=== PATIENT | male | born 1975 | race African-American/Black ===

== ENCOUNTER 2021-12-14 18:20 | Observation (INO) | payer SELFPAY ==
[2021-12-14 21:20] LABS: Absolute Lymphocytes (CBC) 1.8 K/uL (0.7-4.9); Hematocrit 44.4 % (39.6-49.0); Lymphocytes % 23.8 % (15.3-44.8); MCV 96.2 fL (80-100); MPV 7.5 fL (7.6-11.3); RBC Red Blood Cell Count 4.61 M/uL (4.33-5.43)
--- NOTE | 2021-12-14 21:58 | RAD REPORT ---
EXAM DESCRIPTION: RAD - Chest Single View - 12/14/2021 9:30 pm CLINICAL HISTORY: left sided paresthesia Chest pain. COMPARISON: No comparisons FINDINGS: Portable technique limits examination quality. The lungs are grossly clear. The heart is normal in size. No displaced fractures. IMPRESSION: No acute intrathoracic process suspected.
--- NOTE | 2021-12-14 22:04 | RAD REPORT ---
EXAM DESCRIPTION: CT - [id number] - 12/14/2021 9:53 pm CLINICAL HISTORY: Trauma, head and neck injury. intermittent slurred speech, radiculopathy symptoms COMPARISON: No comparisons TECHNIQUE: Axial 5 mm thick images of the head were obtained. Axial 2 mm thick images of the cervical spine were obtained with sagittal and coronal reconstruction images generated and reviewed. All CT scans are performed using dose optimization technique as appropriate and may include automated exposure control or mA/KV adjustment according to patient size. FINDINGS: CT HEAD WITHOUT CONTRAST: No acute hemorrhage, hydrocephalus or extra-axial collection is identified.No areas of brain edema or midline shift. The paranasal sinuses and mastoids are clear.The calvarium is intact. CT CERVICAL SPINE WITHOUT CONTRAST: No fracture or subluxation.Mild cervical degenerative changes are present.No prevertebral soft tissue s swelling is identified. IMPRESSION: No acute intracranial or cervical spine findings.
[2021-12-14] MEDS ORDERED: ATORVASTATIN 20 MG TAB ONE (22:51)
[2021-12-14] MEDS ORDERED: FOLIC ACID 1 MG TABLET ONE (22:51)
[2021-12-14] MEDS ORDERED: ASPIRIN 81 MG CHEWABLE TABLET ONE (22:51)
--- NOTE | 2021-12-14 23:40 | P.HP ---
Certification for Inpatient Patient admitted to: Observation With expected LOS: <2 Midnights Patient will require the following post-hospital care: None Practitioner: I am a practitioner with admitting privileges, knowledge of patient current condition, hospital course, and medical plan of care. Services: Services provided to patient in accordance with Admission requirements found in Title 42 Section 412.3 of the Code of Federal Regulations Patient History Date of Service: 12/14/21 Reason for admission: Left sided paresthesia History of Present Illness: 46-year-old male with no known past medical history presents the emergency department for left-sided numbness. He reports his symptoms began approximately 1 week ago he describes decreased sensation to the left upper, lower extremity as well as left side of his face. He reports that his significant other reported that his speech sounded more slurred than normal and he feels as if he may have had some difficulty swallowing earlier today. He was evaluated in the emergency department his labs were unremarkable CT head brain without contrast was negative for any acute findings ED provider wishes to admit under observation to rule out CVA. - Past Medical/Surgical History -: None -: toe surgery Psychosocial/ Personal History: Unemployed, lives at home with his - Family History Father -: Stroke - Social History Smoking Status: Current some day smoker Counseled patient to stop smoking for: less than 10 minutes Smoking therapy provided: No Alcohol use: No CD- Drugs: No Caffeine use: Yes Place of Residence: Home Review of Systems 10-point ROS is otherwise unremarkable Neurological: Numbness, As per HPI Physical Examination - Physical Exam General: Alert, In no apparent distress, Oriented x3 HEENT: Atraumatic, PERRLA, Mucous membr. moist/pink, EOMI, Sclerae nonicteric Neck: Supple, 2+ carotid pulse no bruit, No LAD, Without JVD or thyroid abnormality Respiratory: Clear to auscultation bilaterally, Normal air movement Cardiovascular: Regular rate/rhythm, Normal S1 S2 Gastrointestinal: Normal bowel sounds, No tenderness Musculoskeletal: No tenderness Integumentary: No rashes Neurological: Normal gait, Normal speech, Normal strength at 5/5 x4 extr, Normal tone, Cranial nerves 3-12 intact, Normal affect, Abnormal sensation (Decreased sensation left upper and lower extremity) - Studies Laboratory Data (last 24 hrs) 12/14/21 21:07: WBC 7.7, Hgb 15.3, Hct 44.4, Plt Count 162 12/14/21 21:07: Sodium 140, Potassium 4.0, BUN 11, Creatinine 0.99, Glucose 105 Assessment and Plan - Plan Assessment: Left-sided paresthesiasrule out CVA Tobacco abuse Recreational drug abuse Plan: Left-sided paresthesiasrule out CVA: MRI ordered, echocardiogram and carotid Doppler ordered as well. Continue with aspirin, statin and folic acid. Neurology consult in place. Tobacco abuse: Counseled on need for cessation. Recreational drug abuse: Reports PCP use a few days ago counseled on need for cessation. DVT PPX: Lovenox Code status:full Discharge Plan: Home Plan to discharge in: 24 Hours - Advance Directives Does patient have a Living Will: No Does patient have a Durable POA for Healthcare: No - Code Status/Comfort Care Code Status Assessed: Yes (Full code) Critical Care: No Time Spent Managing Pts Care (In Minutes): 70
[2021-12-15 00:18] LABS: SARS-CoV-2 Antigen Rapid Res Negative (Negative)
[2021-12-15] MEDS ORDERED: ONDANSETRON 4 MG/2 ML VIAL IV PRN (01:54)
[2021-12-15] MEDS ORDERED: ACETAMINOPHEN 500 MG TAB PO PRN (01:54)
[2021-12-15 01:59] VITALS: BMI 30.8
[2021-12-15 02:57] LABS: Absolute Lymphocytes (CBC) 2.2 K/uL (0.7-4.9); Hematocrit 44.1 % (39.6-49.0); Lymphocytes % 32.1 % (15.3-44.8); MCV 96.2 fL (80-100); MPV 7.7 fL (7.6-11.3); RBC Red Blood Cell Count 4.59 M/uL (4.33-5.43)
[2021-12-15 03:19] LABS: Albumin 3.6 g/dL (3.4-5.0); Bilirubin Total 0.7 mg/dL (0.2-1.0); Magnesium 1.9 mg/dL (1.8-2.4); Potassium 3.6 mmol/L (3.5-5.1); Protein, Total 7.2 g/dL (6.4-8.2); Thyroid Stimulating Hormone 1.33 uIU/mL (0.360-3.740)
--- NOTE | 2021-12-15 08:43 | RAD REPORT ---
EXAM DESCRIPTION: US - CP - 12/15/2021 3:45 am CLINICAL HISTORY: suspected cva COMPARISON: Head C Spine Mpr Wo Con dated 12/14/2021 TECHNIQUE: Real-time sonographic evaluation of bilateral carotid and vertebral systems was performed . Rob scale and Doppler interrogation were performed with waveform tracing bilaterally. FINDINGS: Normal high resistance waveforms are noted in both external carotid arteries. The common c arotid arteries and internal carotid arteries show normal low resistance waveforms. Noncalcified plaquing changes are seen in the bilateral carotid bulbs and in the distal right common carotid artery. Visually there is no significant luminal narrowing. No dissection changes are present . Peak systolic and end diastolic velocity values and the ICA/CCA ratios are in the non-hemodynamical ly significant range. Antegrade flow seen in both vertebral arteries. Velocity values and ratios were recorded and are retained in the patient's imaging records. IMPRESSION: Bilateral noncalcified plaquing changes are present without visual evidence for signific ant luminal narrowing peer Velocity values and ratios also indicate no hemodynamically significant stenosis.
--- NOTE | 2021-12-15 08:49 | EKG ---
Test Date: 2021-12-14 Test Time: 21:01:15 Mathematics Professor: DARIEL MEASUREMENT RESULTS: Intervals: Rate: 45 SC: 168 QRSD: 90 QT: 442 QTc: 382 [place]: P: 17 SC: 168 QRS: -11 T: 42 INTERPRETIVE STATEMENTS: Marked sinus bradycardia Moderate voltage criteria for LVH, may be normal variant Nonspecific T wave abnormality Abnormal ECG No previous ECG available for comparison Electronically Signed On 12-15-21 08:46:47 CDT by Malcolm Dumont
[2021-12-15] MEDS ORDERED: FOLIC ACID 1 MG TABLET PO SCH (09:00)
[2021-12-15] MEDS ORDERED: ASPIRIN EC 81 MG TAB PO SCH (09:00)
[2021-12-15] MEDS ORDERED: ATORVASTATIN 40 MG TAB PO ONE (09:00)
[2021-12-15] MEDS ORDERED: ENOXAPARIN 40 MG/0.4 ML SQ SCH (09:00)
[2021-12-15] MEDS ORDERED: ASPIRIN 81 MG CHEWABLE TABLET ONE (09:02)
[2021-12-15] MEDS ORDERED: FOLIC ACID 1 MG TABLET ONE (09:02)
[2021-12-15] MEDS ORDERED: ENOXAPARIN 40 MG/0.4 ML SQ ONE (09:03)
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
--- NOTE | 2021-12-15 11:42 | RAD REPORT ---
EXAM DESCRIPTION: MRI - Brain Wo Cont - 12/15/2021 11:12 am CLINICAL HISTORY: R/O CVA, left sided weakness COMPARISON: Head C Spine Mpr Wo Con dated 12/14/2021 TECHNIQUE: Sagittal T1-weighted images were obtained along with axial PD, heavily T2-weighted and T2 -FLAIR images. Axial DWI and ADC mapping sequences were also obtained along with coronal heavily T2-w eighted images. FINDINGS: No intracranial hemorrhage, mass or acute infarction. There is no edema or shift of midlin e structures. No extra-axial fluid collections. Rob-matter/white matter junction is preserved. Signa l voids are seen as a normal finding in the major intracranial vessels. No volume loss or chronic ischemic change. Ventricles are normal. No globe or orbital content abnorma lity. No sella or supra sella abnormality seen. There is no tonsillar ectopia. Mastoid air cells and paranasal sinuses are clear. IMPRESSION: Negative non-contrast MRI of the Brain for acute or significant finding.
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
--- NOTE | 2021-12-15 14:28 | ECHO ---
HEIGHT: 5 ft 7 in WEIGHT: 197 lb 0 oz DATE OF STUDY: 12/15/[address]: Juan Ramon Hester NP 2-DIMENSIONAL: YES M.MODE: YES DOPPLER: YES COLOR FLOW: YES TDS: NO PORTABLE: YES DEFINITY: NO BUBBLE STUDY: NO DIAGNOSIS: SUSPECTED CVA CARDIAC HISTORY: CATHERIZATION: NO SURGERY: NO PROSTHETIC VALVE: NO PACEMAKER: NO MEASUREMENTS (cm) DIASTOLIC (NORMALS) SYSTOLIC (NORMALS) IVSd 1.1 (0.6-1.2) LA Diam 2.9 (1.9-4.0) LVEF 65% LVIDd 4.5 (3.5-5.7) LVIDs 2.9 (2.0-3.5) %FS 35% LVPWd 1.2 (0.6-1.2) Ao Diam 3.3 (2.0-3.7) 2 DIMENSIONAL ASSESSMENT: RIGHT ATRIUM: NORMAL LEFT ATRIUM: NORMAL RIGHT VENTRICLE: NORMAL LEFT VENTRICLE: NORMAL TRICUSPID VALVE: MITRAL VALVE: PULMONIC VALVE: AORTIC VALVE: NORMAL PERICARDIAL EFFUSION: NONE AORTIC ROOT: NORMAL LEFT VENTRICULAR WALL MOTION: NORMAL DOPPLER/COLOR FLOW: SEE BELOW COMMENTS: NORMAL LEFT VENTRICULAR EJECTION FRACTION 60-65%. NORMAL WALL MOTION. MILD TRICUSPID, PULMONARY AND MITRAL REGURGITATION. TECHNOLOGIST: Juany VAZQUEZ
[2021-12-15 15:07] VITALS: O2SAT 100
[2021-12-15 15:09] VITALS: TEMP 98.3
[2021-12-15 15:12] VITALS: BP 114/89
[2021-12-15] MEDS ORDERED: ATORVASTATIN 40 MG TAB PO SCH (21:00)
--- NOTE | 2021-12-16 09:54 | ER ---
Nurse's Notes [facility] Diann Name: Shawn David IV Age: 46 yrs Sex: Male : 1975 Arrival Date: 12/14/2021 Time: 18:20 Bed 28 Private MD: Diagnosis: Paresthesia of skin;Aphasia Presentation: 12/14 18:29 Chief complaint: Patient states: pt presented to ED reporting left neck pain that galvez radiates to left arm with numbness x1 week. pt stated that spouse notice pt having slurred speech x1 week off and on. Coronavirus screen: Vaccine status: Patient reports being unvaccinated. Ebola Screen: Patient denies travel to an Ebola-affected area in the 21 days before illness onset. Initial Sepsis Screen: Does the patient meet any 2 criteria? No. Patient's initial sepsis screen is negative. Does the patient have a suspected source of infection? No. Patient's initial sepsis screen is negative. Risk Assessment: Do you want to hurt yourself or someone else? Patient reports no desire to harm self or others. Onset of symptoms was December 07, 2021. 18:29 Method Of Arrival: Ambulatory galvez 18:29 Acuity: LUIS FERNANDO 3 galvez Historical: - Allergies: 18:32 Iodine; galvez - Home Meds: 18:32 None [Active]; galvez - PMHx: 18:32 None; galvez - PSHx: 18:32 None; galvez - Immunization history:: Adult Immunizations up to date. - Social history:: Smoking status: Patient reports the use of cigarette tobacco products, smokes one-half pack cigarettes per day, Patient uses street drugs, phencyclidine. Screenin:23 Abuse screen: Denies threats or abuse. Nutritional screening: No deficits noted. bb Tuberculosis screening: No symptoms or risk factors identified. Fall Risk None identified. Assessment: 18:34 Neuro: Level of Consciousness is awake, alert, obeys commands, Oriented to person, galvez place, time, situation, Horticultural Technical Officer are equal bilaterally Moves all extremities. Gait is steady, Speech is normal, Facial symmetry appears normal, Numbness in left arm. 20:23 General: Appears in no apparent distress. Behavior is calm, cooperative. Pain: Denies bb pain. Neuro: Level of Consciousness is awake, alert, obeys commands, Oriented to person, place, time, situation, Horticultural Technical Officer are equal bilaterally. Cardiovascular: Capillary refill < 3 seconds Patient's skin is warm and dry. Respiratory: Respiratory effort is even, unlabored, Respiratory pattern is regular. GI: No signs and/or symptoms were reported involving the gastrointestinal system. Derm: Skin is dry, Skin is normal, Skin temperature is warm. Musculoskeletal: Circulation, motion, and sensation intact. Reports numbness in left arm. 21:34 Reassessment: Patient is alert, oriented x 3, equal unlabored respirations, skin bb warm/dry/pink. awaiting diagnostic results, family at bedside. 23:30 Reassessment: No changes from previously documented assessment. Patient and/or family sm5 updated on plan of care and expected duration. Pain level reassessed. Vital Signs: 18:29 BP 140 / 89; Pulse 76; Resp 17; Temp 98.4(T); Pulse Ox 98% on R/A; Weight 88.45 kg; galvez Height 5 ft. 7 in. (170.18 cm); 20:23 BP 119 / 92; Pulse 72; Resp 16 S; Pulse Ox 100% on R/A; bb 21:14 BP 123 / 79; Pulse 60; Resp 20; Temp 98.3; Pulse Ox 100% ; Weight 89.36 kg; Height 5 zm ft. 7 in. (170.18 cm); 23:27 BP 114 / 89; Pulse 60; Resp 13; Pulse Ox 100% on R/A; sm5 21:14 Body Mass Index 30.85 (89.36 kg, 170.18 cm) ED Course: 18:20 Patient arrived in ED. am2 18:32 Triage completed. galvez 20:06 Nahid Wong MD is Attending Physician. kdr 20:23 Lucrecia Rogers, COLTON is Primary Nurse. bb 20:23 Patient has correct armband on for positive identification. Bed in low position. Call bb light in reach. Side rails up X 1. Adult w/ patient. Pulse ox on. NIBP on. 21:13 Inserted saline lock: 20 gauge in right antecubital area, using aseptic technique. Blood collected. 21:14 Basic Metabolic Panel Sent. 21:14 CBC with Diff Sent. zm 21:14 Troponin HS Sent. 21:31 XRAY Chest (1 view) In Process Unspecified. EDMS 21:55 CT Head C Spine In Process Unspecified. EDMS 23:19 Jay Hamm MD is Hospitalizing Provider. kdr 23:32 Arm band placed on right wrist. 5 12/15 07:44 Primary Nurse role handed off by Lucrecia Rogers RN 14:04 No provider procedures requiring assistance completed. IV discontinued, intact, galvez Pressure dressing applied. Administered Medications: 12/14 22:46 Drug: Atorvastatin 20 mg Route: PO; sm5 23:31 Follow up: Response: No adverse reaction sm5 22:47 Drug: Aspirin 81 mg Route: PO; sm5 23:31 Follow up: Response: No adverse reaction sm5 22:47 Drug: folate 1 mg Route: PO; sm5 23:31 Follow up: Response: No adverse reaction [facility] Medication: 23:32 VIS not applicable for this client. 5 Outcome: 23:21 Decision to Hospitalize by Provider. kdr 12/15 14:04 Discharged to home ambulatory, with family. galvez Condition: good Discharge instructions given to patient. 14:05 Patient left the ED. galvez Signatures: Dispatcher [employer] EDMS Denise Campos Kevin, MD MD kdr Lucrecia Rogers, RN RN Sindi Layne Sarah RN RN 5 Leela Novak RN RN ha Martinez, Zaina zm
--- NOTE | 2021-12-16 09:54 | EDPHYS ---
Physician Documentation [facility] Name: Shawn David IV Age: 46 yrs Sex: Male : 1975 Arrival Date: 12/14/2021 Time: 18:20 Bed 28 Private MD: ED Physician Nahid Wong HPI: 12/14 21:20 This 46 yrs old Black Male presents to ER via Ambulatory with complaints of Numbness Of kdr Arm - left, Numbness Of Lips. 21:20 Patient is brought to the ED by his spouse. For the last week he has had numbness to kdr his left side of his body. This included his arms and legs as well as his face. Does he was occasionally slurring his words throughout the week as well. He has not had this before. He has not been evaluated for this prior to this admission. Does admit to occasional alcohol and experimenting with recreational drugs (PCP) of this last week. Onset: The symptoms/episode began/occurred suddenly, 1 week(s) ago. Severity of symptoms: At their worst the symptoms were mild moderate just prior to arrival, in the emergency department the symptoms are unchanged. The patient has not experienced similar symptoms in the past. The patient has not recently seen a physician. Historical: - Allergies: 18:32 Iodine; galvez - Home Meds: 18:32 None [Active]; galvez - PMHx: 18:32 None; galvez - PSHx: 18:32 None; galvez - Immunization history:: Adult Immunizations up to date. - Social history:: Smoking status: Patient reports the use of cigarette tobacco products, smokes one-half pack cigarettes per day, Patient uses street drugs, phencyclidine. ROS: 21:20 Constitutional: Negative for fever, chills, and weight loss, Eyes: Negative for injury, kdr pain, redness, and discharge, ENT: Negative for injury, pain, and discharge, Neck: Negative for injury, pain, and swelling, Cardiovascular: Negative for chest pain, palpitations, and edema, Respiratory: Negative for shortness of breath, cough, wheezing, and pleuritic chest pain, Abdomen/GI: Negative for abdominal pain, nausea, vomiting, diarrhea, and constipation, Back: Negative for injury and pain, : Negative for injury, bleeding, discharge, and swelling, MS/Extremity: Negative for injury and deformity, Skin: Negative for injury, rash, and discoloration, Psych: Negative for depression, anxiety, suicide ideation, homicidal ideation, and hallucinations, Allergy/Immunology: Negative for hives, rash, and allergies, Endocrine: Negative for neck swelling, polydipsia, polyuria, polyphagia, and marked weight changes, Hematologic/Lymphatic: Negative for swollen nodes, abnormal bleeding, and unusual bruising. 21:20 Neuro: Positive for numbness, speech changes, Negative for altered mental status, dizziness, gait disturbance, headache, seizure activity, syncope, near syncope, tingling, tinnitus, tremor, visual changes, weakness. Exam: 21:20 Constitutional: This is a well developed, well nourished patient who is awake, alert, kdr and in no acute distress. Head/Face: Normocephalic, atraumatic. Eyes: Pupils equal round and reactive to light, extra-ocular motions intact. Lids and lashes normal. Conjunctiva and sclera are non-icteric and not injected. Cornea within normal limits. Periorbital areas with no swelling, redness, or edema. Neck: Trachea midline, no thyromegaly or masses palpated, and no cervical lymphadenopathy. Supple, full range of motion without nuchal rigidity, or vertebral point tenderness. No Meningismus. Chest/axilla: Normal chest wall appearance and motion. Nontender with no deformity. No lesions are appreciated. Cardiovascular: Regular rate and rhythm with a normal S1 and S2. No gallops, murmurs, or rubs. Normal PMI, no JVD. No pulse deficits. Respiratory: Lungs have equal breath sounds bilaterally, clear to auscultation and percussion. No rales, rhonchi or wheezes noted. No increased work of breathing, no retractions or nasal flaring. Abdomen/GI: Soft, non-tender, with normal bowel sounds. No distension or tympany. No guarding or rebound. No evidence of tenderness throughout. Back: No spinal tenderness. No costovertebral tenderness. Full range of motion. Skin: Warm, dry with normal turgor. Normal color with no rashes, no lesions, and no evidence of cellulitis. Neuro: Awake and alert, GCS 15, oriented to person, place, time, and situation. Cranial nerves II-XII grossly intact. Motor strength 5/5 in all extremities. Sensory grossly intact. Cerebellar exam normal. Normal gait. Psych: Awake, alert, with orientation to person, place and time. Behavior, mood, and affect are within normal limits. 21:20 Musculoskeletal/extremity: Extremities: 21:20 Neuro: Orientation: is normal, Mentation: is normal, Memory: is normal, Cranial nerves: no acute changes, Cerebellar function: is grossly normal, Motor: is normal, Sensation: numbness, that is mild, of the left cheek, left jaw, left side of forehead, left sabianist, left zygomatic area, left mandible, left arm and left leg. 23:50 ECG was reviewed by the Attending Physician. kdr Vital Signs: 18:29 BP 140 / 89; Pulse 76; Resp 17; Temp 98.4(T); Pulse Ox 98% on R/A; Weight 88.45 kg; galvez Height 5 ft. 7 in. (170.18 cm); 20:23 BP 119 / 92; Pulse 72; Resp 16 S; Pulse Ox 100% on R/A; bb 21:14 BP 123 / 79; Pulse 60; Resp 20; Temp 98.3; Pulse Ox 100% ; Weight 89.36 kg; Height 5 zm ft. 7 in. (170.18 cm); 23:27 BP 114 / 89; Pulse 60; Resp 13; Pulse Ox 100% on R/A; sm5 21:14 Body Mass Index 30.85 (89.36 kg, 170.18 cm) zm MDM: 23:21 Patient medically screened. kdr 23:21 Data reviewed: vital signs, nurses notes, lab test result(s), radiologic studies. kdr Counseling: I had a detailed discussion with the patient and/or guardian regarding: the historical points, exam findings, and any diagnostic results supporting the discharge/admit diagnosis, lab results, radiology results, the need for outpatient follow up. 12/14 20:28 Order name: Basic Metabolic Panel; Complete Time: 22:09 kdr 12/14 20:28 Order name: CBC with Diff; Complete Time: 21:24 kdr 12/14 20:28 Order name: Troponin HS; Complete Time: 22:09 kdr 12/14 23:27 Order name: SARS RAPID sm5 12/15 02:58 Order name: CBC with Automated Diff EDMS 12/15 03:19 Order name: Comprehensive Metabolic Panel EDMS 12/14 18:37 Order name: CT Head C Spine; Complete Time: 22:09 rn 12/14 20:28 Order name: XRAY Chest (1 view); Complete Time: 22:09 kdr 12/15 03:19 Order name: Lipid Profile EDHI 12/15 03:19 Order name: T4 Free EDHI 12/15 03:19 Order name: Magnesium EDHI 12/15 03:19 Order name: Thyroid Stimulating Hormone EDHI 12/15 08:43 Order name: [facility] 12/14 20:28 Order name: EKG; Complete Time: 20:32 kdr 12/14 20:28 Order name: Cardiac monitoring; Complete Time: 21:14 kdr 12/14 20:28 Order name: EKG - Nurse/Tech; Complete Time: 21:14 kdr 12/14 20:28 Order name: IV Saline Lock; Complete Time: 21:14 kdr 12/14 20:28 Order name: Labs collected and sent; Complete Time: 21:14 kdr 12/15 11:43 Order name: MRI EDHI EC:50 Rate is 45 beats/min. Rhythm is regular, Sinus bradycardia with No ectopy. QRS [place] is kdr Normal. HI interval is normal. QRS interval is normal. QT interval is normal. Clinical impression: NSR w/ Non-specific ST/T Changes and Sinus bradycardia. Administered Medications: 22:46 Drug: Atorvastatin 20 mg Route: PO; sm5 23:31 Follow up: Response: No adverse reaction sm5 22:47 Drug: Aspirin 81 mg Route: PO; sm5 23:31 Follow up: Response: No adverse reaction sm5 22:47 Drug: folate 1 mg Route: PO; sm5 23:31 Follow up: Response: No adverse reaction 5 Disposition Summary: 12/14/21 23:21 Hospitalization Ordered Hospitalization Status: Observation kdr Provider: Jay Hamm Condition: Fair kdr Problem: new kdr Symptoms: have improved kdr Bed/Room Type: Standard kdr Location: [facility] ER HOLD(12/14/21 23:40) Room Assignment: ERHOLD-(12/14/21 23:40) Diagnosis - Paresthesia of skin kdr - Aphasia kdr Forms: - Medication Reconciliation Form kdr - SBAR form kdr Signatures: Dispatcher [employer] [facility] Seema Mejia RN RN mw Nahid Wong MD MD kdr Joana Mckeon RN RN sm5 Patience-Stager, Leela RN RN galvez Corrections: (The following items were deleted from the chart) 21: 20:32 Head Angio+CT.RAD.BRZ ordered. EDMS EDMS :40 23:21 Telemetry/MedSurg (Inpatient) kdr mw :40 23:21 [facility] mw
== END 2021-12-15 14:45 | disposition home or self-care (01) ==
LOC: ER 18:20 → ERHOLD 23:59
PROVIDERS: ADMIT Hospitalist; ATTEND Hospitalist
DX: R20.2 Paresthesia of skin (principal); R47.01 Aphasia; R20.0 Anesthesia of skin; F16.10 Hallucinogen abuse, uncomplicated; Z71.51 Drug abuse counseling and surveillance of drug abuser; F17.210 Nicotine dependence, cigarettes, uncomplicated; Z71.6 Tobacco abuse counseling; Z87.828 Personal history of other (healed) physical injury and trauma; Z91.041 Radiographic dye allergy status; Z20.822 Contact with and (suspected) exposure to COVID-19; Z82.3 Family history of stroke
CPT/HCPCS: 36415; 70450; 70551; 71045; 72125; 80048; 80053; 80061; 83735; 84439; 84443; 84484; 85025; 87811; 93005; 93306; 93880; 99284; G0378; J1650